=== PATIENT | female | born 1995 | race African-American/Black ===

== ENCOUNTER 2022-02-23 15:49 | Emergency (ER) | payer MEDICAID, SELFPAY ==
[2022-02-23 16:37] VITALS: BP 146/93; PULSE 102; RESP 16; TEMP 36.6; O2SAT 97; BMI 43.9
[2022-02-23] MEDS: Lidocaine HCl 2 % MPF 5 ML VIAL SUBCUT ×2 (17:46)
[2022-02-23] MEDS: Ibuprofen 800 MG TABLET PO (17:47)
[2022-02-23] MEDS: cephALEXin 500 MG CAPSULE PO (17:47)
--- NOTE | 2022-02-23 17:58 | ED_ITS ---
HPI - Skin/Abscess/Foreign Bdy General Chief complaint: Skin/Abscess/Foreign Body Stated complaint: draining cyst Time Seen by Provider: 02/23/22 16:54 Source: patient Mode of arrival: ambulatory Limitations: no limitations History of Present Illness MD complaint: abscess/boil Onset (ago): week(s) (1) Location: buttocks (Pilonidal) Severity: severe Severity scale (1-10): >10 Quality: aching and constant Pain Consistency: constant Relieving factors: none Exacerbating factors: palpation (And walking) Context: none Associated symptoms: chills Treatments prior to arrival: attempted to drain pus at home Related Data Previous Rx's Medication Instructions Recorded cephalexin 500 mg capsule 500 mg PO Q6H 10 Days #40 cap 02/23/22 doxycycline monohydrate 100 mg 100 mg PO BID 10 Days #20 tab 02/23/22 tablet ibuprofen 800 mg tablet 800 mg PO Q8H PRN #14 tab 02/23/22 oxycodone 5 mg tablet 5 mg PO Q6H PRN #10 tab 02/23/22 Allergies Allergy/AdvReac Type Severity Reaction Status Date / Time No Known Allergies Allergy Verified 02/23/22 16:35 Review of Systems Review of Systems: Constitutional : Denies history of same, Denies any other sites involved, Denies IV drug use, Denies history of MRSA, Denies swollen glands, Denies injury, Denies Fever, Denies Chills, + Sig Pain, Denies Systemic symptoms Cardiovascular : No Chest Pain, No SOB Respiratory : No Dyspnea Gastrointestinal : No abdominal pain Musculoskeletal : No Joint Swelling Skin : + abscess c drainage, No surrounding erythema, No skin laceration, No Foreign bodies, No spreading rash, Denies bites Neuro : No Weakness, No Numbness/tingling Psych : No SI/HI/thoughts of self injury Yes all other systems are reviewed and are negative [facility] Past Medical History Attestation statement: The following information was validated with the patient. Surgical History S/P PUNCH [employer] shunt Social History Social History Patient : No Physical Exam Vital Signs: Vital Signs: Last Vital Signs Temp 97.9 F 02/23/22 16:37 Pulse 102 H 02/23/22 16:37 Resp 16 02/23/22 16:37 BP 146/93 H 02/23/22 16:37 Pulse Ox 97 02/23/22 16:37 BMI result Body Mass Index 43.9 vital signs have been reviewed as normal and appeared to be correct. Blood pressure 146/93 Heart rate 102. Respiration rate normal. Temperature normal. Oxygen saturation normal. Appearance: Alert. Oriented X3. No acute distress. Head: Normal external exam. Normocephalic. Atraumatic. Eyes: PERRLA. EOMI. Conjunctiva and sclera normal. Eyelids normal. ENT: Pharynx normal. Uvula midline. Moist mucous membranes. Neck: Normal inspection. Neck supple. FROM. CVS: Normal heart rate and rhythm. Respiratory: No respiratory distress. Painless inspiration. Skin: Skin warm and dry. Normal skin color. Normal skin turgor. Patient with pilonidal abscess with purulent drainage no streaking or foreign bodies noted. No additional rashes/lesions/lacerations noted. Extremities: Extremities exhibit normal range of motion. Extremities nontender. Neuro: Oriented X 3. No motor deficit. No sensory deficit. Reflexes normal. Normal steady gait. No focal neuro deficits noted. Vascular: + radial pulses/+ 2 distal pedal pulses/+2 dorsalis pedis b/l. Normal cap refill. No cyanosis noted to upper extremity nails and lower extremity toes nails. Course Course Course Narrative: IMP/Plan: abscess. No systemic toxicity, and pt looks well. No surrounding cellulitis. Not c/w nec fasc/ myositis/ DVT/ osteomyelitis. patient now status post I&D of abscess and patient tolerated procedure well. No complications. No labs or imaging indicated at this time. I placed packing. Will DC home antibiotics and symptomatic treatment instructions return in 2-3 days for packing removal/wound check. Patient understands agrees with this plan. MDM - Skin/Abscess/Foreign Bdy Medical Records Attestation: I reviewed the patient's medical records. Procedures Abscess I/D Site: other (Pilonidal) Side (if applicable): left Local Anesthetic: lidocaine 2% Amount of anesthesia used (mL): 6 Technique: incised with blade Amount of fluid expressed (mL): 20 Sent for culture/gram staining?: No Irrigation: Yes Packing used?: iodoform Complications: other (No complications) Discharge Plan Discharge Clinical Impression: Pilonidal abscess Patient Disposition: Home, Self-Care Instructions: Pilonidal Cyst (ED) Prescriptions: New doxycycline monohydrate 100 mg tablet 100 mg PO BID 10 Days Qty: 20 0RF cephalexin 500 mg capsule 500 mg PO Q6H 10 Days Qty: 40 0RF ibuprofen 800 mg tablet 800 mg PO Q8H PRN (Reason: pain) Qty: 14 0RF oxycodone 5 mg tablet 5 mg PO Q6H PRN (Reason: pain) Qty: 10 0RF Referrals: Min Monzon MD [Physician] - (You may need the sac from this this removed surgically therefore he should contact this general surgeon and make an appointment within the next 1-2 weeks) Jesika Carrero PA [Emergency Midlevel Provider] - 2 days (For packing removal/wound check) Stand Alone Forms: Work/School Release Print Language: [place]
== END 2022-02-23 18:47 | disposition home or self-care (01) ==
LOC: HO.ED 18:40
PROVIDERS: Emergency Provider Emergency Medicine
DX: L05.01 Pilonidal cyst with abscess (principal)
CPT/HCPCS: 10060; 99283; 99284

== ENCOUNTER 2022-02-26 08:33 | Emergency (ER) | payer MEDICAID, SELFPAY ==
[2022-02-26 09:15] VITALS: BP 129/68; PULSE 82; RESP 18; TEMP 36.7; O2SAT 95; BMI 43.6
--- NOTE | 2022-02-26 09:31 | ED.RECABL ---
HPI - Recheck/Abnormal Lab/Rx General Chief Complaint: Skin/Abscess/Foreign Body Stated Complaint: PACKING REMOVAL Time Seen by Provider: 02/26/22 09:30 Source: patient Mode of arrival: ambulatory Limitations: no limitations History of Present Illness MD complaint: wound re-check Initial visit (ago): day(s) (2) Initial visit for: abscess Returns today for: wound recheck (Packing removal) Symptoms since prior visit: no new symptoms Context: planned re-check Associated symptoms: none Treatments prior to arrival: other (Given doxycycline and Keflex taking as prescribed and pain meds) Related Data Previous Rx's Medication Instructions Recorded cephalexin 500 mg capsule 500 mg PO Q6H 10 Days #40 cap 02/23/22 doxycycline monohydrate 100 mg 100 mg PO BID 10 Days #20 tab 02/23/22 tablet ibuprofen 800 mg tablet 800 mg PO Q8H PRN #14 tab 02/23/22 oxycodone 5 mg tablet 5 mg PO Q6H PRN #10 tab 02/23/22 Allergies Allergy/AdvReac Type Severity Reaction Status Date / Time No Known Allergies Allergy Verified 02/23/22 16:35 Review of Systems Review of Systems: Constitutional : Denies history of same, Denies any other sites involved, Denies IV drug use, Denies history of MRSA, Denies swollen glands, Denies injury, Denies Fever, Denies Chills, No Sig Pain, Denies Systemic symptoms Cardiovascular : No Chest Pain, No SOB Respiratory : No Dyspnea Gastrointestinal : No abdominal pain Musculoskeletal : No Joint Swelling Skin : + wound with packing in place with purulent drainage. No new abscess or fluctuance noted. No surrounding erythema noted, No skin laceration, No Foreign bodies, No spreading rash, Denies bites Neuro : No Weakness, No Numbness/tingling Psych : No SI/HI/thoughts of self injury Yes all other systems are reviewed and are negative [facility] Past Medical History Attestation statement: The following information was validated with the patient. 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 Blood pressure normal Heart rate normal. Respiration rate normal. Temperature normal. Oxygen saturation normal. Appearance: Alert. Oriented X3. No acute distress. Head: Normal external exam. Normocephalic. Atraumatic. Eyes: PERRLA. EOMI. Conjunctiva and sclera normal. Eyelids normal. ENT: Pharynx normal. Uvula midline. Moist mucous membranes. Neck: Normal inspection. Neck supple. FROM. CVS: Normal heart rate and rhythm. Respiratory: No respiratory distress. Painless inspiration. Skin: Skin warm and dry. Normal skin color. Normal skin turgor. To the pilonidal aspect patient has packing in place with purulent drainage noted once packing removed patient still has moderate purulent drainage and bloody discharge. No new fluctuance or surrounding erythema. No rashes/lesions/lacerations noted. Extremities: No lower extremity edema. Extremities exhibit normal range of motion. Extremities nontender. Neuro: Oriented X 3. No motor deficit. No sensory deficit. Reflexes normal. Normal steady gait. No focal neuro deficits noted. Vascular: + radial pulses/+ 2 distal pedal pulses/+2 dorsalis pedis b/l. Normal cap refill. No cyanosis noted to upper extremity nails and lower extremity toes nails. Course Course Course Narrative: 26-year-old female who is status post I&D of abscess that occurred 2 days ago presenting to the ED for packing removal she is currently on doxycycline and Keflex taking as prescribed along with pain meds reports improvement although with packing removal patient still has moderate purulent drainage therefore I repacked the patient and instructed her to return in 2 days for packing removal and to follow-up with the general surgeon as well. Patient understands agrees with this plan. MDM - Recheck/Abnormal Lab/Rx Medical Records Attestation: I reviewed the patient's medical records. Discharge Plan Discharge Clinical Impression: Wound check, abscess, Abscess packing removal Patient Disposition: Home, Self-Care Instructions: Abscess Follow-up (ED) Prescriptions: No Action doxycycline monohydrate 100 mg tablet 100 mg PO BID 10 Days Qty: 20 0RF cephalexin 500 mg capsule 500 mg PO Q6H 10 Days Qty: 40 0RF ibuprofen 800 mg tablet 800 mg PO Q8H PRN (Reason: pain) Qty: 14 0RF oxycodone 5 mg tablet 5 mg PO Q6H PRN (Reason: pain) Qty: 10 0RF Referrals: Jesika Carrero PA [Emergency Midlevel Provider] - 2 days (for packing removal/wound check) Min Monzon MD [Physician] - 1 week Print Language: [place]ic
== END 2022-02-26 09:41 | disposition home or self-care (01) ==
PROVIDERS: Emergency Provider Student in an Organized Health Care Education/Training Program
DX: Z48.00 Encounter for change or removal of nonsurgical wound dressing (principal); Z79.899 Other long term (current) drug therapy
CPT/HCPCS: 99283

== ENCOUNTER 2022-03-01 10:17 | Emergency (ER) | payer MEDICAID, SELFPAY ==
[2022-03-01 10:32] VITALS: BP 124/85; PULSE 98; RESP 16; TEMP 37.2; O2SAT 98; BMI 45.6
--- NOTE | 2022-03-01 10:41 | ED_ITS ---
HPI - Skin/Abscess/Foreign Bdy General Chief complaint: Skin/Abscess/Foreign Body Stated complaint: Remove packing Time Seen by Provider: 03/01/22 10:40 Source: patient Mode of arrival: ambulatory History of Present Illness HPI narrative: 26-year-old female with a past medical history of pilonidal cyst s/p I&D in the ED on 02/23 presenting to ED for packing removal. Patient reports was seen after initial procedure on 02/26, had packing removed however still had purulence drainage, and packing was replaced. Reports compliance with doxycycline and Keflex. Reports mild residual pain to area, and has an appointment with General surgery on March 10. Patient unclear if drainage still occurring, does report low-grade fever 99 this morning. Onset (ago): day(s) Location: buttocks Pain Consistency: constant Related Data Previous Rx's Medication Instructions Recorded cephalexin 500 mg capsule 500 mg PO Q6H 10 Days #40 cap 02/23/22 doxycycline monohydrate 100 mg 100 mg PO BID 10 Days #20 tab 02/23/22 tablet ibuprofen 800 mg tablet 800 mg PO Q8H PRN #14 tab 02/23/22 oxycodone 5 mg tablet 5 mg PO Q6H PRN #10 tab 02/23/22 Allergies Allergy/AdvReac Type Severity Reaction Status Date / Time No Known Allergies Allergy Verified 02/23/22 16:35 Review of Systems Review of Systems: Constitutional: +low grade Fever, No Chills ENT/Mouth: No Ear Pain, No Nasal Congestion, No sore throat, No Rhinorrhea, No Swallowing Difficulty Cardiovascular: No Chest Pain, No SOB Respiratory: No Cough Gastrointestinal: No Nausea, No Vomiting, No Diarrhea, No Constipation, No Abdom inal pain Genitourinary: No Dysuria, No Urinary Incontinence, No Flank Pain Musculoskeletal: No joint pain, No Myalgias, No Joint Swelling Skin: + Skin Lesions, No rash Neuro: No Weakness, No Numbness, No Paresthesias Yes all other systems are reviewed and are negative [facility] Past Medical History Attestation statement: The following information was validated with the patient. 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 Social History Social History Advance Directives: No Advance Directives Information Provided: No Patient : No Physical Exam Vital Signs: Vital Signs: Last Vital Signs Temp 99.0 F 03/01/22 10:32 Pulse 98 03/01/22 10:32 Resp 16 03/01/22 10:32 BP 124/85 03/01/22 10:32 Pulse Ox 98 03/01/22 10:32 BMI result Body Mass Index 45.6 Const: General: cooperative, healthy appearing and no acute distress Orientation/consciousness: patient oriented x3 Limitations: no limitations HEENT: Head: Yes normal to inspection and Yes atraumatic Ears: hearing grossly normal bilaterally General nose exam: Normal external nose present Face and sinus: Yes normal facial exam Eyes: General: appearance normal, both eyes and all related structures EOM: EOMs intact bilaterally Neck: Neck: Yes normal visual inspection and Yes no meningeal signs Resp: Effort & Inspection: normal respiratory effort and no respiratory distress Cardio: Rate: regular rate Skin: Other: + pilonidal abscess with packing in place. Packing removed with small amount of purulent drainage expressed. No bleeding. No surrounding erythema/cellulitis, no fluctuance or induration. Mildly tender to palpation. Rashes: no rashes Neuro: General: patient oriented x3, tone normal and no meningeal signs Gait exam (Neuro): Normal gait present Extrem: General: Yes normal to inspection MDM - Skin/Abscess/Foreign Bdy MDM Narrative Medical decision making narrative: 26-year-old female with a past medical history of pilonidal cyst s/p I&D in the ED on 02/23 presenting to ED for packing removal. On exam temp 99 degrees, NAD/nontoxic appearing, physical exam as above wound with packing in place, packing removed with small amount of purulence drainage expressed, no surrounding cellulitis. Packing not replaced. Discussed with patient to continue prescribed antibiotics and return to ED in 2 days for subsequent re- evaluation. She verbalized understanding and feels safe for discharge home at this time. Stressed importance of general surgery follow-up Low concern for severe sepsis Differential Diagnosis Differential diagnosis: Likely abscess of skin or subcutaneous tissue Medical Records Attestation: I reviewed the patient's medical records. Lab Data Attestation: I reviewed the patient's lab results. Discharge Plan Discharge Clinical Impression: Abscess packing removal Patient Disposition: Home, Self-Care Instructions: Abscess Follow-up (ED) Additional Instructions: Continue taking previously prescribed antibiotics. Keep a close eye on the area, if area begins to local red, increasingly painful, or has pus drainage please return to the emergency department Follow-up in 2 days for re-evaluation Prescriptions: No Action doxycycline monohydrate 100 mg tablet 100 mg PO BID 10 Days Qty: 20 0RF cephalexin 500 mg capsule 500 mg PO Q6H 10 Days Qty: 40 0RF ibuprofen 800 mg tablet 800 mg PO Q8H PRN (Reason: pain) Qty: 14 0RF oxycodone 5 mg tablet 5 mg PO Q6H PRN (Reason: pain) Qty: 10 0RF Referrals: ED Physician,Generic [Emergency Provider] - 2 days (for re-evaluation)
== END 2022-03-01 11:03 | disposition home or self-care (01) ==
PROVIDERS: Emergency Provider Emergency Medicine
DX: Z48.00 Encounter for change or removal of nonsurgical wound dressing (principal)
CPT/HCPCS: 99282; 99283

== ENCOUNTER 2022-03-03 09:26 | Emergency (ER) | payer MEDICAID, SELFPAY ==
[2022-03-03 09:45] VITALS: BP 103/54; PULSE 84; RESP 18; TEMP 36.8; O2SAT 96; BMI 43.6
--- NOTE | 2022-03-03 10:19 | ED_ITS ---
HPI - Recheck/Abnormal Lab/Rx General Chief Complaint: Skin/Abscess/Foreign Body Stated Complaint: cyst Time Seen by Provider: 03/03/22 10:17 Source: patient Mode of arrival: ambulatory Limitations: no limitations History of Present Illness MD complaint: wound re-check Initial visit (ago): day(s) (8) Initial visit for: abscess Returns today for: wound recheck Symptoms since prior visit: no new symptoms Context: planned re-check Associated symptoms: none Treatments prior to arrival: other (Given doxycycline and Keflex and taking as prescribed) Related Data Previous Rx's Medication Instructions Recorded cephalexin 500 mg capsule 500 mg PO Q6H 10 Days #40 cap 02/23/22 doxycycline monohydrate 100 mg 100 mg PO BID 10 Days #20 tab 02/23/22 tablet ibuprofen 800 mg tablet 800 mg PO Q8H PRN #14 tab 02/23/22 oxycodone 5 mg tablet 5 mg PO Q6H PRN #10 tab 02/23/22 Allergies Allergy/AdvReac Type Severity Reaction Status Date / Time No Known Allergies Allergy Verified 03/03/22 09:45 Review of Systems Review of Systems: Constitutional : Denies history of same, Denies any other sites involved, Denies IV drug use, Denies history of MRSA, Denies swollen glands, Denies injury, Denies Fever, Denies Chills, No Sig Pain, Denies Systemic symptoms Cardiovascular : No Chest Pain, No SOB Respiratory : No Dyspnea Gastrointestinal : No abdominal pain Musculoskeletal : No Joint Swelling Skin : + healing wound no no abscesses, no surrounding erythema No skin laceration, No Foreign bodies, No spreading rash, Denies bites, Denies discharge, Neuro : No Weakness, No Numbness/tingling Psych : No SI/HI/thoughts of self injury Yes all other systems are reviewed and are negative [facility] Past Medical History Attestation statement: The following information was validated with the patient. 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 Blood pressure normal Heart rate normal. Respiration rate normal. Temperature nany l. Oxygen saturation normal. Appearance: Alert. Oriented X3. No acute distress. Head: Normal external exam. Normocephalic. Atraumatic. Eyes: PERRLA. EOMI. Conjunctiva and sclera normal. Eyelids normal. ENT: Pharynx normal. Uvula midline. Moist mucous membranes. Neck: Normal inspection. Neck supple. FROM. CVS: Normal heart rate and rhythm. Respiratory: No respiratory distress. Painless inspiration. Skin: Skin warm and dry. Normal skin color. Normal skin turgor. To the pilonidal aspect patient has a well-healing wound no surrounding erythema/fluctuance/induration/foreign bodies or purulent drainage noted. No rashes/lesions/lacerations noted. Extremities: No lower extremity edema. Extremities exhibit normal range of motion. Extremities nontender. Neuro: Oriented X 3. No motor deficit. No sensory deficit. Reflexes normal. Normal steady gait. No focal neuro deficits noted. Vascular: + radial pulses/+ 2 distal pedal pulses/+2 dorsalis pedis b/l. Normal cap refill. No cyanosis noted to upper extremity nails and lower extremity toes nails. Course Course Course Narrative: Patient here for wound check. Packing was already removed on 03/01/2022. She is taking doxycycline and Keflex as prescribed. Wound appears well healing no new signs of infection or reaccumulation. Will DC home with instructions to continue taking her antibiotics as prescribed and to return if any new or worsening symptoms. Patient understands agrees with this plan. MDM - Recheck/Abnormal Lab/Rx Medical Records Attestation: I reviewed the patient's medical records. Discharge Plan Discharge Clinical Impression: Wound check, abscess Patient Disposition: Home, Self-Care Prescriptions: No Action doxycycline monohydrate 100 mg tablet 100 mg PO BID 10 Days Qty: 20 0RF cephalexin 500 mg capsule 500 mg PO Q6H 10 Days Qty: 40 0RF ibuprofen 800 mg tablet 800 mg PO Q8H PRN (Reason: pain) Qty: 14 0RF oxycodone 5 mg tablet 5 mg PO Q6H PRN (Reason: pain) Qty: 10 0RF Referrals: Physician,None [Primary Care Provider] - (your pcp as needed)
== END 2022-03-03 10:27 | disposition home or self-care (01) ==
PROVIDERS: Emergency Provider Emergency Medicine
DX: L02.91 Cutaneous abscess, unspecified (principal); Z98.890 Other specified postprocedural states
CPT/HCPCS: 99282; 99283

== ENCOUNTER → 2022-03-10 13:13 | Outpatient (BNVA) | payer MEDICAID, SELFPAY | PROVIDERS: Visit Provider Surgery | DX: L05.01 Pilonidal cyst with abscess (principal) | CPT/HCPCS: 99202 ==

== ENCOUNTER 2022-09-28 12:21 | Emergency (ER) | payer MEDICAID, SELFPAY ==
[2022-09-28 12:42] VITALS: BP 121/75; PULSE 116; RESP 20; TEMP 36.8; O2SAT 97; BMI 77.0
--- NOTE | 2022-09-28 13:27 | ED_ITS ---
HPI - General Adult General Chief complaint: Skin/Abscess/Foreign Body Stated complaint: cyst Time Seen by Provider: 09/28/22 13:27 Source: patient Mode of arrival: ambulatory Limitations: no limitations History of Present Illness HPI narrative: Patient is a 27 year old assigned female at with no reported medical history presenting to the emergency department today with a cyst on her lower back. Patient states that she has a cyst on her lower back / top of her buttock that has been getting worse over the last few days. Patient states that she has had this before and it previously had to be drained. Patient denies any dizziness, lightheadedness, abdominal pain, nausea, vomiting, fever, chills, blurry vision, double vision, loss of vision, chest pain, difficulty breathing, shortness of breath, back pain, night sweats, pain with urination, increased urinary frequency, increased urinary urgency, blood in her urine or stool, syncope or a near syncopal episode, recent trauma or falls, bowel incontinence, bladder incontinence, bowel retention, bladder retention, or any other complaints at this time. Onset (ago): day(s) Location: back and buttocks Radiation: non-radiation Severity: mild Severity scale (1-10): 3 Quality: aching and dull Pain Consistency: constant Relieving factors: none Exacerbating factors: none Associated symptoms: denies other symptoms Treatments prior to arrival: none Related Data Previous Rx's Medication Instructions Recorded cephalexin 500 mg capsule 500 mg PO Q6H 10 days #40 caps 02/23/22 doxycycline monohydrate 100 mg 100 mg PO BID Abscess 10 days #20 02/23/22 tablet tabs ibuprofen 800 mg tablet 800 mg PO Q8H PRN pain #14 tabs 02/23/22 oxycodone 5 mg tablet 5 mg PO Q6H PRN pain #10 tabs 02/23/22 cephalexin 500 mg capsule 500 mg PO Q6H 7 days #28 caps 09/28/22 Allergies Allergy/AdvReac Type Severity Reaction Status Date / Time No Known Allergies Allergy Verified 03/03/22 09:45 Review of Systems Constitutional: Constitutional: Reports no additional constitutional complaints, Denies chills, Denies fever(s) and Denies night sweats Eyes: Eyes: Reports no additional eye complaints, Denies blurry vision, Denies change in vision, Denies diplopia, Denies eye discharge, Denies loss of vision and Denies eye pain ENT: Denies dizziness Cardiovascular: Cardiovascular: Reports no additional cardiovascular complaints, Denies chest pain, Denies lightheadedness, Denies Loss of Consciousness and Denies dyspnea Respiratory: Respiratory: Reports no additional respiratory complaints and De nies dyspnea Gastrointestinal: Gastrointestinal: Reports no additional gastrointestinal complaints, Denies abdominal pain, Denies melena, Denies hematochezia, Denies change in bowel habits and Denies change in stool character Genitourinary: Genitourinary: Denies hematuria, Denies urinary frequency, Denies dysuria, Denies urinary incontinence, Denies urinary hesitancy and Denies urinary urgency Musculoskeletal: Musculoskeletal: Reports no additional musculoskeletal complaints, Denies numbness and Denies tingling Integumentary/Breasts: Comments: cyst to the low back / upper buttock Neurologic: Denies dizziness, Denies loss of vision, Denies numbness and Denies tingling Psychiatric: Psychiatric: Reports no additional psychiatric complaints Endocrine: Endocrine: Reports no additional endocrine complaints Hematologic/Lymphatic: Hematologic/Lymphatic: Reports no additional hematologic/lymphatic complaints Allergic/Immunologic: Allergic/Immunologic: Reports no additional allergic/immunologic complaints [facility] Past Medical History Attestation statement: The following information was validated with the patient. Source: old records reviewed Surgical History History of brain surgery S/P ONLINE PROGRAM COORDINATOR shunt Family History Family History Paternal Grandmother Breast cancer Social History Social History Alcohol intake: never Patient Tobacco Use Status: Current everyday Tobacco user Advance Directives: No Advance Directives Information Provided: No Physical Exam ED Vital Signs: Vital Signs - 24 hr 09/28/22 12:42 Temperature 98.2 F Pulse Rate 116 H Respiratory Rate 20 Blood Pressure 121/75 Pulse Oximetry 97 Oxygen Delivery Method Room Air BMI result Body Mass Index 77.0 Const General: cooperative, no acute distress, alert and awake Nutritional Appearance: well nourished Orientation/consciousness: patient oriented x3 Limitations: no limitations HENMT Head: Yes normal to inspection and Yes atraumatic Ears: hearing grossly normal bilaterally and external ears normal General nose exam: Normal external nose present, no nasal discharge noted and no epistaxis Face and sinus: Yes normal facial exam, No abrasion and No laceration Mouth: Normal oral and palatal mucosa present, no drooling and no muffled voice Eyes General: appearance normal, both eyes and all related structures Periorbital: periorbital findings normal Eyelids: Yes eyelids normal Conjunctivae: conjunctivae normal Pupils: Equal, round and reactive pupils present EOM: EOMs intact bilaterally Neck Neck: Yes normal visual inspection, Yes full ROM and Yes no lymphadenopathy Chest Chest palpation & inspection: normal inspection of the chest Resp Effort & Inspection: normal respiratory effort and able to speak in complete sentences Auscultation: clear to auscultation bilaterally Cardio Rate: regular rate Rhythm: regular rhythm GI Inspection: Yes normal to inspection Skin Other: pilonidal abscess present to the medial aspect of the left gluteal cheek Neuro General: patient oriented x3 and moves all extremities Cranial nerves: Yes Equal, round and reactive pupils present Cognition (Neuro): normal cognition Motor exam (neuro): 5/5 motor strength present throughout Sensory Exam: Normal double simultaneous stimulation for sensation Coordination: [id number] test normal Extrem General: Yes normal to inspection, Yes full ROM and Yes capillary refill normal Psych Appearance: grossly normal Mental Status: mental status grossly normal Affect: normal affect Attitude: cooperative Thought process: Normal thought process present Thought content: Normal thought content present Insight: Good insight present (Psych) Medications Administered Discontinued Medications Generic Name Dose Route Start Last Admin Trade Name Jasmeetq PRN Reason Stop Dose Admin Lidocaine HCl 5 ml 09/28/22 13:58 09/28/22 14:26 Lidocaine Hcl 1 % Mpf 5 Ml Vial SUBCUT 09/28/22 13:59 5 ml ONCE ONE Administration Procedures Abscess I/D Site: other (buttock) Side (if applicable): left Local Anesthetic: lidocaine 1% Amount of anesthesia used (mL): 1 Technique: needle aspiration Amount of fluid expressed (mL): 25 Sent for culture/gram staining?: No Irrigation: No Packing used?: none Medical Decision Making MDM Narrative Medical decision making narrative: Patient is a 27 year old assigned female at with no reported medical history presenting to the emergency department today with a cyst to her lower back / upper buttock. Patient's physical exam showed a pilonidal abscess / cyst to the left gluteal cheek along the medial aspect. I explained my physical exam findings to the patient. I answered all questions asked by the patient. Giovanny graham's abscess was incised and drained, without incident, per procedure note. I stressed the importance of the patient taking her medication as prescribed. I stressed the importance of the patient following up with her primary care provider and a general surgeon. I stressed the importance of the patient returning to the emergency department immediately if her symptoms were to worsen or if she were to develop any dizziness, shortness of breath, difficulty breathing, chest pain, blurry vision, loss of vision, nausea, vomiting, abdominal pain, fever, chills, back pain, or any other complaints. Patient verbalized agreement and understanding with this treatment plan and discharge. Medical Records Medical records reviewed: Yes I reviewed the patient's medical records. Discharge Plan Discharge Clinical Impression: Pilonidal cyst Patient Disposition: Home, Self-Care Instructions: Pilonidal Cyst (ED) Additional Instructions: Follow up with your primary care provider and a general surgeon. Return to the emergency department immediately if your symptoms worsen or if you develop any dizziness, shortness of breath, difficulty breathing, chest pain, blurry vision, loss of vision, nausea, vomiting, abdominal pain, fever, chills, back pain, or any other complaints. Prescriptions: New cephalexin 500 mg capsule 500 mg PO Q6H 7 Days Qty: 28 0RF No Action doxycycline monohydrate 100 mg tablet 100 mg PO BID 10 Days Qty: 20 0RF cephalexin 500 mg capsule 500 mg PO Q6H 10 Days Qty: 40 0RF ibuprofen 800 mg tablet 800 mg PO Q8H PRN (Reason: pain) Qty: 14 0RF oxycodone 5 mg tablet 5 mg PO Q6H PRN (Reason: pain) Qty: 10 0RF Referrals: [facility] [place] General Surgeons [Provider Group] (Call to establish and follow up with a general surgeon. ) [facility] [place] Family Medicine [Provider Group] (Call to establish and follow up with a primary care provider. If you already have a primary care provider, please follow up with them. ) [facility] [place] [Provider Group] (Call to establish and follow up with a primary care provider. If you already have a primary care provider, please follow up with them. ) [facility] [place] [facility] [Provider Group] (Call to establish and follow up with a primary care provider. If you already have a primary care provider, please follow up with them. ) Interventions: ED Discharge Assessment Last Done: 09/28/22 14:39 Print Language: Azerbaijani
[2022-09-28] MEDS: Lidocaine HCl 1 % MPF 5 ML VIAL SUBCUT (14:26)
[2022-09-28] MEDS: HYDROcodone Bit/Acetam 5/325 TABLET 1 TAB PO (14:36)
== END 2022-09-28 14:39 | disposition home or self-care (01) ==
PROVIDERS: Emergency Provider Emergency Medicine
DX: L05.01 Pilonidal cyst with abscess (principal)
CPT/HCPCS: 10160; 99283; 99284